=== PATIENT | female | born 1995 | race Caucasian/White ===

== ENCOUNTER 2022-03-16 11:36 | Emergency (ER) | payer BC, OTHER ==
[2022-03-16] MEDS ORDERED: NA CHLORIDE 0.9% 1,000 ML ONE (13:06)
[2022-03-16] MEDS ORDERED: DIPHENHYDRAMINE 50 MG/ML VIAL ONE (13:06)
[2022-03-16] MEDS ORDERED: KETOROLAC 30 MG/ML INJ ONE (13:06)
[2022-03-16 13:21] LABS: Absolute Lymphocytes (CBC) 1.2 K/uL (0.7-4.9); Hematocrit 36.5 % (36.0-45.0); Lymphocytes % 12.6 % (15.3-44.8); MPV 7.9 fL (7.6-11.3); RBC Red Blood Cell Count 4.68 M/uL (3.86-4.86)
[2022-03-16 13:38] LABS: Albumin 3.7 g/dL (3.4-5.0); Bilirubin Total 0.7 mg/dL (0.2-1.0); Potassium 4.2 mmol/L (3.5-5.1); Protein, Total 8.4 g/dL (6.4-8.2)
--- NOTE | 2022-03-16 13:53 | RAD REPORT ---
EXAM DESCRIPTION: CT - CTHCSPWOC - 03/16/2022 1:19 pm CLINICAL HISTORY: Headache COMPARISON: No comparisons TECHNIQUE: Axial 5 mm thick images of the head were obtained. Axial 2 mm thick images of the cervic al spine were obtained with sagittal and coronal reconstruction images generated and reviewed. All CT scans are performed using dose optimization technique as appropriate and may include automated exposure control or mA/KV adjustment according to patient size. FINDINGS: No intracranial hemorrhage, mass, edema or acute intracranial finding. No suspicion for ac rachele infarction. No extra-axial fluid collections. Mastoid air cells and paranasal sinuses are clear. No globe or orbit abnormality seen. Cervical body height and alignment are normal. No disk space narrowing. No fracture or acute bony abn ormality. Anterior spurring superior endplate C6 is mild out more prominent than seen at age. Central canal detail is inherently limited. No paraspinal mass or hematoma. IMPRESSION: Negative CT head examination for acute or significant finding. Negative CT cervical spine examination for acute or significant finding.
[2022-03-16] MEDS ORDERED: HYDROCODONE/APAP 7.5/325 MG TAB ONE (14:54)
[2022-03-16 15:55] LABS: Urine Blood 3+ (Negative); Urine Glucose Negative (Negative); Urine Protein Negative (Negative)
--- NOTE | 2022-03-16 16:38 | RAD REPORT ---
EXAM DESCRIPTION: MRI - Brain W/Wo Cont - 03/16/2022 4:14 pm CLINICAL HISTORY: Left eyelid weakness COMPARISON: No comparisons TECHNIQUE: Sagittal and axial T1-weighted images were obtained. Axial PD/heavily T2-weighted and T2- FLAIR images were obtained along with axial DWI/ADC mapping sequences. Coronal heavily T2 weighted s equence obtained. Axial and coronal post-contrast T1-weighted images were also obtained. A ml Multi william contrast following utilized. FINDINGS: No intracranial hemorrhage, mass or acute infarction. There is no edema or shift of midli ne structures. No extra-axial fluid collections. Gordillo-matter/white matter junction is preserved. Sig nal voids are seen as a normal finding in the major intracranial vessels. No sella or supra sella abn ormality. No globe or orbital content abnormality seen. Adenoid tissue is thickened at 11 mm. No tons illar ectopia. Post-contrast images show normal enhancement. No dural thickening. Mastoid air cells and paranasal sinuses are clear. IMPRESSION: Negative contrast enhanced MRI of the Brain for acute or significant finding Adenoid hypertrophy.
--- NOTE | 2022-03-16 17:21 | EDPHYS ---
Physician Documentation [facility] Name: Vida Hicks Age: 26 yrs Sex: Female : 1995 Arrival Date: 03/16/2022 Time: 11:40 Bed 19 Private MD: ED Physician Garland Alicea DERMATOPATHOLOGIST: 03/16 11:50 LMP 03/16/2022 iw Historical: - Allergies: 11:50 No Known Allergies; iw - Home Meds: 11:50 None [Active]; iw - PMHx: 11:50 Anemia; iw - PSHx: 11:50 None; iw - Immunization history:: Client reports having NOT received the Covid vaccine. - Social history:: Smoking status: Patient/guardian denies using tobacco. Vital Signs: 11:48 BP 126 / 60; Pulse 94; Resp 18; Temp 99.4; Pulse Ox 100% on R/A; Weight 104.33 kg; iw Height 5 ft. 6 in. (167.64 cm); 14:50 BP 115 / 67; Pulse 82; Resp 16; Pulse Ox 100% on R/A; em6 16:15 BP 96 / 61; Pulse 69; Resp 16; Pulse Ox 99% ; em6 17:53 BP 125 / 73; Pulse 76; Resp 18; Pulse Ox 99% ; em6 11:48 Body Mass Index 37.12 (104.33 kg, 167.64 cm) iw Visual Acuity: 15:02 Left Eye Visual acuity 20/20, Normal; Right Eye Visual acuity 20/20, Normal; Both Eyes em6 Visual acuity 20/20; With Lenses; MDM: 17:20 Patient medically screened. [facility] 03/16 12:43 Order name: CBC with Diff; Complete Time: 14:04 [facility] 03/16 12:43 Order name: Comprehensive Metabolic Panel; Complete Time: 14:04 [facility] 03/16 12:43 Order name: Strep; Complete Time: 14:04 [facility] 03/16 13:47 Order name: Throat Culture [facility] 03/16 15:55 Order name: Urine Dipstick-Ancillary; Complete Time: 16:31 [facility] 03/16 15:57 Order name: Urine --Ancillary (enter results); Complete Time: 16:31 [facility] 03/16 12:43 Order name: CT Head C Spine; Complete Time: 14:04 [facility] 03/16 12:43 Order name: Urine Dipstick-Ancillary (obtain specimen); Complete Time: 15:55 kdr 03/16 14:15 Order name: MRI - Brain W/Wo Cont; Complete Time: 17:16 kdr 03/16 12:43 Order name: Urine Test (obtain specimen); Complete Time: 15:55 kdr 03/16 14:15 Order name: Visual Acuity; Complete Time: 14:52 kdr Administered Medications: 13:14 Drug: Benadryl (diphenhydrAMINE) 25 mg Route: IVP; Site: left antecubital; em6 14:10 Follow up: Response: No adverse reaction jd3 13:15 Drug: Ketorolac 15 mg Route: IVP; Site: left antecubital; em6 14:15 Follow up: Response: No adverse reaction jd3 13:23 Drug: NS 0.9% 1000 ml Route: IV; Rate: 1 bolus; Site: left antecubital; em6 14:48 Follow up: Response: No adverse reaction; IV Status: Completed infusion; IV Intake: em6 1000ml 14:48 Drug: [place] (HYDROcodone-acetaminophen) (7.5 mg-325 mg) 1 tabs Route: PO; em6 15:28 Follow up: Response: No adverse reaction; RASS: Alert and Calm (0) jd3 17:40 Drug: SOLU-Medrol (methylPrednisoLONE) 125 mg Route: IVP; Site: left antecubital; em6 17:55 Follow up: Response: No adverse reaction em6 Disposition Summary: 03/16/22 17:20 Discharge Ordered Location: Home kdr Problem: new kdr Symptoms: have improved kdr Condition: Stable kdr Diagnosis - Headache kdr - Acute pharyngitis, unspecified kdr - Left eyelid lag kdr Followup: kdr - With: Private Physician - When: 2 - 3 days - Reason: If symptoms return, Further diagnostic work-up, Recheck today's complaints, Continuance of care, Re-evaluation by your physician Discharge Instructions: - Discharge Summary Sheet kdr - General Headache Without Cause kdr - Pharyngitis kdr Forms: - Medication Reconciliation Form kdr - Thank You Letter kdr Prescriptions: - Medrol (Eduar) 4 mg Oral Tablets, Dose Pack - take 1 tablet by ORAL route as directed - follow package instructions; 1 kdr packet; Refills: 0, Product Selection Permitted - Ibuprofen 800 mg Oral Tablet - take 1 tablet by ORAL route every 12 hours As needed take with food; 20 tablet; kdr Refills: 0, Product Selection Permitted Signatures: Dispatcher Garland Smith MD MD kdr Suzanne Alonso, RN RN iw Haydee Avendaño RN RN em6 Alexander Hall RN jd3
--- NOTE | 2022-03-16 17:21 | ER ---
Nurse's Notes [facility] Name: Vida Hicks Age: 26 yrs Sex: Female : 1995 Arrival Date: 03/16/2022 Time: 11:40 Bed 19 Private MD: Diagnosis: Headache;Acute pharyngitis, unspecified;Left eyelid lag Presentation: 03/16 11:48 Chief complaint: Patient states: has been having swelling to right tonsil, gets dizzy iw and has shooting pains in head , fever X 3 days , was seen at urgent care and flu/covid were negative , fever up to 103. Coronavirus screen: Client presents with at least one sign or symptom that may indicate coronavirus-19. Ebola Screen: Patient negative for fever greater than or equal to 101.5 degrees Fahrenheit, and additional compatible Ebola Virus Disease symptoms Patient denies exposure to infectious person. Patient denies travel to an Ebola-affected area in the 21 days before illness onset. No symptoms or risks identified at this time. Initial Sepsis Screen: Does the patient meet any 2 criteria? No. Patient's initial sepsis screen is negative. Does the patient have a suspected source of infection? No. Patient's initial sepsis screen is negative. Risk Assessment: Do you want to hurt yourself or someone else? Patient reports no desire to harm self or others. Onset of symptoms was March 13, 2022. 11:48 Method Of Arrival: Ambulatory iw 11:48 Acuity: ZAC 3 iw [employer] ATTENDANT: 11:50 LMP 03/16/2022 iw Historical: - Allergies: 11:50 No Known Allergies; iw - Home Meds: 11:50 None [Active]; iw - PMHx: 11:50 Anemia; iw - PSHx: 11:50 None; iw - Immunization history:: Client reports having NOT received the Covid vaccine. - Social history:: Smoking status: Patient/guardian denies using tobacco. Screenin:13 Abuse screen: Denies threats or abuse. Nutritional screening: No deficits noted. em6 Tuberculosis screening: No symptoms or risk factors identified. Fall Risk. Assessment: 12:11 General: Appears in no apparent distress. comfortable, Behavior is calm, cooperative, em6 appropriate for age. Pain: Complains of pain in head Pain radiates to back of neck Pain currently is 2 out of 10 on a pain scale. Quality of pain is described as pressure, Pain began 2-3 days ago. Is intermittent. Neuro: Castaneda Agitation-Sedation Scale (RASS): 0 - Alert and Calm Level of Consciousness is awake, alert, obeys commands, Oriented to person, place, time, situation, Reports headache frontal area, occipital area. Cardiovascular: Heart tones present Patient's skin is warm and dry. Respiratory: Airway is patent Respiratory effort is even, unlabored, Respiratory pattern is regular, symmetrical, Breath sounds are clear bilaterally. GI: No signs and/or symptoms were reported involving the gastrointestinal system. : No signs and/or symptoms were reported regarding the genitourinary system. EENT: No signs and/or symptoms were reported regarding the EENT system. Derm: No signs and/or symptoms reported regarding the dermatologic system. Musculoskeletal: Circulation, motion, and sensation intact. Range of motion: intact in all extremities. 13:10 Reassessment: Patient appears in no apparent distress at this time. No changes from em6 previously documented assessment. Patient and/or family updated on plan of care and expected duration. Pain level reassessed. Patient is alert, oriented x 3, equal unlabored respirations, skin warm/dry/pink. 14:10 Reassessment: Patient appears in no apparent distress at this time. Patient and/or em6 family updated on plan of care and expected duration. Pain level reassessed. Patient is alert, oriented x 3, equal unlabored respirations, skin warm/dry/pink. 15:29 Reassessment: Patient appears in no apparent distress at this time. No changes from jd3 previously documented assessment. Patient and/or family updated on plan of care and expected duration. Pain level reassessed. Patient is alert, oriented x 3, equal unlabored respirations, skin warm/dry/pink. 16:30 Reassessment: Patient and/or family updated on plan of care and expected duration. Pain em6 level reassessed. Patient is alert, oriented x 3, equal unlabored respirations, skin warm/dry/pink. Patient states feeling better. 17:30 Reassessment: Patient appears in no apparent distress at this time. Patient and/or em6 family updated on plan of care and expected duration. Pain level reassessed. Patient is alert, oriented x 3, equal unlabored respirations, skin warm/dry/pink. Vital Signs: 11:48 BP 126 / 60; Pulse 94; Resp 18; Temp 99.4; Pulse Ox 100% on R/A; Weight 104.33 kg; iw Height 5 ft. 6 in. (167.64 cm); 14:50 BP 115 / 67; Pulse 82; Resp 16; Pulse Ox 100% on R/A; em6 16:15 BP 96 / 61; Pulse 69; Resp 16; Pulse Ox 99% ; em6 17:53 BP 125 / 73; Pulse 76; Resp 18; Pulse Ox 99% ; em6 11:48 Body Mass Index 37.12 (104.33 kg, 167.64 cm) iw Visual Acuity: 15:02 Left Eye Visual acuity 20/20, Normal; Right Eye Visual acuity 20/20, Normal; Both Eyes em6 Visual acuity 20/20; With Lenses; ED Course: 11:40 Patient arrived in ED. rg4 11:50 Triage completed. iw 11:50 Arm band placed on. iw 11:52 Garland Alicea MD is Attending Physician. kdr 12:13 Patient has correct armband on for positive identification. Bed in low position. Call em6 light in reach. Warm blanket given. 13:14 Inserted saline lock: 20 gauge in left antecubital area, using aseptic technique. Blood em6 collected. 13:15 Strep Sent. em6 13:21 CT Head C Spine In Process Unspecified. EDMS 15:57 MRI - Brain W/Wo Cont In Process Unspecified. EDMS 17:55 No provider procedures requiring assistance completed. IV discontinued, intact, em6 bleeding controlled, No redness/swelling at site. Pressure dressing applied. Administered Medications: 13:14 Drug: Benadryl (diphenhydrAMINE) 25 mg Route: IVP; Site: left antecubital; em6 14:10 Follow up: Response: No adverse reaction jd3 13:15 Drug: Ketorolac 15 mg Route: IVP; Site: left antecubital; em6 14:15 Follow up: Response: No adverse reaction jd3 13:23 Drug: NS 0.9% 1000 ml Route: IV; Rate: 1 bolus; Site: left antecubital; em6 14:48 Follow up: Response: No adverse reaction; IV Status: Completed infusion; IV Intake: em6 1000ml 14:48 Drug: [place] (HYDROcodone-acetaminophen) (7.5 mg-325 mg) 1 tabs Route: PO; em6 15:28 Follow up: Response: No adverse reaction; RASS: Alert and Calm (0) jd3 17:40 Drug: SOLU-Medrol (methylPrednisoLONE) 125 mg Route: IVP; Site: left antecubital; em6 17:55 Follow up: Response: No adverse reaction em6 Medication: 12:13 VIS not applicable for this client. em6 Intake: 14:48 IV: 1000ml; Total: 1000ml. em6 Outcome: 17:20 Discharge ordered by . kdr 17:56 Discharged to home ambulatory, with family. em6 17:56 Condition: stable 17:56 Discharge instructions given to patient, family, Instructed on discharge instructions, follow up and referral plans. medication usage, Demonstrated understanding of instructions, follow-up care, medications, Prescriptions given X 2. 17:57 Patient left the ED. em6 Signatures: Dispatcher [employer] EDMS Garland Alicea MD MD kdr Williams, Irene, RN RN iw Garcia, Rubi rg4 Alexander Hall RN RN jHaydee Spears RN RN em6
[2022-03-16] MEDS ORDERED: METHYLPREDNISOLONE 125 MG INJ ONE (17:53)
[2022-03-16 18:59] VITALS: TEMP 99.4
[2022-03-16 19:04] VITALS: O2SAT 99
[2022-03-16 19:13] VITALS: BP 125/73
== END 2022-03-16 17:57 | disposition home or self-care (01) ==
LOC: ER 11:36
DX: R51.9 Headache, unspecified (principal); J02.9 Acute pharyngitis, unspecified; H02.536 Eyelid retraction left eye, unspecified eyelid
CPT/HCPCS: 96361; 87070; 85025; 36415; 81025; 87081; 81003; 80053; 70450; 72125; 70553; 96375; 96374; 99284; A9577; J1200; J7030; J2930

== ENCOUNTER 2025-05-13 07:50 | Emergency (ER) | payer OTHER ==
[2025-05-13] MEDS ORDERED: FENTANYL CITR 100 MCG/2 ML ONE (08:25)
[2025-05-13] MEDS ORDERED: ONDANSETRON 4 MG/2 ML VIAL ONE (08:25)
[2025-05-13] MEDS ORDERED: NA CHLORIDE 0.9% 1,000 ML ONE (08:26)
[2025-05-13] MEDS ORDERED: FAMOTIDINE 20 MG/2 ML VIAL IV ONE (08:26)
[2025-05-13] MEDS ORDERED: KETOROLAC 30 MG/ML INJ ONE (08:27)
[2025-05-13 08:42] LABS: Absolute Lymphocytes (CBC) 1.9 K/uL (0.7-4.9); Hematocrit 36.0 % (36.0-45.0); Hemoglobin 11.7 g/dL (12.0-15.0); MCH 25.7 pg (27.0-35.0); MCHC 32.4 g/dL (32.0-36.0); MCV 79.3 fL (80-100); MPV 8.4 fL (7.6-11.3); Nucleated RBC Absolute Count 0.0 (0-0); Nucleated Red Blood Cells % 0.1 % (0-0); RBC Red Blood Cell Count 4.54 M/uL (3.86-4.86); White Blood Count 7.90 thou/uL (4.3-10.9)
[2025-05-13 08:56] LABS: Urine Microscopic Reflex YN NO UMIC
[2025-05-13 09:12] LABS: ALT/SGPT 28.0 U/L (13-56); AST/SGOT 16.0 U/L (15-37); Albumin 3.5 g/dL (3.4-5.0); Albumin/Globulin Ratio 0.9 (1.1-1.8); Alkaline Phosphatase 50.0 U/L (45-117); Anion Gap 10.0 mEq/L (5.0-15.0); BUN Blood Urea Nitrogen 13.0 mg/dL (7-18); Globulin 4.0 g/dL (2.3-3.5); Glucose Level 93.0 mg/dL (74-106); Lipase 31.0 U/L (13-75); Potassium 4.0 mEq/L (3.5-5.1)
--- NOTE | 2025-05-13 09:22 | RAD REPORT ---
EXAMINATION: CT ABDOMEN AND PELVIS WITH CONTRAST CLINICAL INDICATION: ABD PAIN TECHNIQUE: CT abdomen and pelvis was performed, after the administration of IV contrast, as per [facility] protocol. Axial, sagittal and coronal reconstructions were obtained. One or more of the following dose reduction techniques were used: Automated exposure control, adjustment of the mA and k V according to patient size, and iterative reconstruction. Unless otherwise specified, incidental findings do not require dedicated imaging follow-up. COMPARISON: No prior exam. FINDINGS: LOWER CHEST: The visualized lung bases are clear. LIVER: Normal in size and contour. No focal lesion. Grossly unremarkable gallbladder. SPLEEN: Normal size. No focal lesion. PANCREAS: No mass, ductal dilation, or mike-pancreatic fluid. ADRENALS: Normal; no mass. KIDNEYS: Normal size and contour. No hydronephrosis. GASTROINTESTINAL TRACT: No evidence of free air, significant intra-abdominal free fluid, bowel obstru ction or abscess. APPENDIX: Normal appendix. LYMPH NODES: No lymphadenopathy. MUSCULOSKELETAL: Moderate lower lumbar spondylosis. ADDITIONAL FINDINGS: None. IMPRESSION: No acute abnormalities seen in the abdomen or pelvis.
--- NOTE | 2025-05-13 10:00 | EDPHYS ---
Physician Documentation [facility] Name: Vida Hicks Age: 29 yrs Sex: Female : 1995 Arrival Date: 05/13/2025 Time: 07:50 Bed 7 Private MD: ED Physician López Coburn HPI: 05/13 08:37 This 29 yrs old Female presents to ER via Ambulatory with complaints of Fall adonay Injury, Abdominal Pain, Nausea. 08:37 Details of fall: The patient fell from an upright position, while walking. Onset: The adonay symptoms/episode began/occurred just prior to arrival, this morning. Associated injuries: The patient sustained injury to the abdomen, specifically the right lower quadrant and left lower quadrant, contusion. Severity of symptoms: At their worst the symptoms were mild, in the emergency department the symptoms are unchanged. The patient has not experienced similar symptoms in the past. Historical: - Allergies: 08:07 Amoxicillin; bp 08:07 PENICILLINS; bp - PMHx: 08:07 Anemia; Anxiety; Bipolar disorder; PTSD; Schizophrenia; bp - Immunization history:: Adult Immunizations up to date. - Infectious Disease History:: Denies. - Social history:: Smoking status: Patient denies any tobacco usage or history of. - Family history:: not pertinent. ROS: 08:37 Constitutional: Negative for fever, chills, and weight loss, Eyes: Negative for injury, adonay pain, redness, and discharge, ENT: Negative for injury, pain, and discharge, Neck: Negative for injury, pain, and swelling, Cardiovascular: Negative for chest pain, palpitations, and edema, Respiratory: Negative for shortness of breath, cough, wheezing, and pleuritic chest pain, Back: Negative for injury and pain, : Negative for injury, bleeding, discharge, and swelling, MS/Extremity: Negative for injury and deformity, Skin: Negative for injury, rash, and discoloration, Neuro: Negative for headache, weakness, numbness, tingling, and seizure, Psych: Negative for depression, anxiety, suicide ideation, homicidal ideation, and hallucinations, Allergy/Immunology: Negative for hives, rash, and allergies, Endocrine: Negative for neck swelling, polydipsia, polyuria, polyphagia, and marked weight changes, Hematologic/Lymphatic: Negative for swollen nodes, abnormal bleeding, and unusual bruising, 08:37 Abdomen/GI: Positive for abdominal pain, of the right lower quadrant and left lower quadrant, Exam: 08:37 Constitutional: This is a well developed, well nourished patient who is awake, alert, adonay and in no acute distress. Head/Face: Normocephalic, atraumatic. Eyes: Pupils equal round and reactive to light, extra-ocular motions intact. Lids and lashes normal. Conjunctiva and sclera are non-icteric and not injected. Cornea within normal limits. Periorbital areas with no swelling, redness, or edema. ENT: Nares patent. No nasal discharge, no septal abnormalities noted. Tympanic membranes are normal and external auditory canals are clear. Oropharynx with no redness, swelling, or masses, exudates, or evidence of obstruction, uvula midline. Mucous membranes moist. Neck: Trachea midline, no thyromegaly or masses palpated, and no cervical lymphadenopathy. Supple, full range of motion without nuchal rigidity, or vertebral point tenderness. No Meningismus. Chest/axilla: Normal chest wall appearance and motion. Nontender with no deformity. No lesions are appreciated. Cardiovascular: Regular rate and rhythm with a normal S1 and S2. No gallops, murmurs, or rubs. Normal PMI, no JVD. No pulse deficits. Respiratory: Lungs have equal breath sounds bilaterally, clear to auscultation and percussion. No rales, rhonchi or wheezes noted. No increased work of breathing, no retractions or nasal flaring. Back: No spinal tenderness. No costovertebral tenderness. Full range of motion. Female : Normal external genitalia. Skin: Warm, dry with normal turgor. Normal color with no rashes, no lesions, and no evidence of cellulitis. MS/ Extremity: Pulses equal, no cyanosis. Neurovascular intact. Full, normal range of motion., bilateral aka Neuro: Awake and alert, GCS 15, oriented to person, place, time, and situation. Cranial nerves II-XII grossly intact. Motor strength 5/5 in all extremities. Sensory grossly intact. Cerebellar exam normal. Normal gait. Psych: Awake, alert, with orientation to person, place and time. Behavior, mood, and affect are within normal limits. 08:37 Abdomen/GI: Inspection: abdomen appears normal, Bowel sounds: normal, Palpation: mild abdominal tenderness, in the right lower quadrant and left lower quadrant, moderate abdominal tenderness, in the right lower quadrant and left lower quadrant, Liver: no appreciated palpable abnormalities, Hernia: not appreciated, Vital Signs: 08:06 BP 130 / 59; Pulse 69; Resp 16; Temp 98.1; Pulse Ox 100% ; bp MDM: 07:55 Medical Screening Exam initiated adonay 08:50 Differential diagnosis: contusion. Data reviewed: vital signs, nurses notes, lab test adonay result(s), radiologic studies, CT scan. Consideration of Admission/Observation Escalation of care including admission/observation considered. I considered the following discharge prescriptions or medication management in the emergency department Medications were administered in the Emergency Department. See MAR. Independent interpretation of the following test(s) in the Emergency Department CT Scan: My interpretation is ct abd / pel. Test considered but Not performed: Ultrasound no FAST EXAM. Care significantly affected by the following chronic conditions: ANEMAIA, EMPLEON, BIPOLAR, PTSD, ANXIETY. 05/13 08:20 Order name: CBC with Diff; Complete Time: 09:59 [facility] 05/13 08:20 Order name: CMP; Complete Time: 09:59 [facility] 05/13 08:20 Order name: Lipase; Complete Time: 09:59 [facility] 05/13 08:20 Order name: Test, Urine; Complete Time: 09:59 [facility] 05/13 08:20 Order name: UA Rfx Earle Cult if indicated; Complete Time: 09:59 [facility] 05/13 08:20 Order name: CT Abd/Pelvis - IV Contrast Only; Complete Time: 09:59 [facility] 05/13 08:20 Order name: IV Saline Lock; Complete Time: 08:28 [facility] 05/13 08:20 Order name: Labs collected and sent; Complete Time: 08:28 [facility] Administered Medications: :23 CANCELLED (Duplicate Order): morphineor iv 4 mg IVP once over 4 mins adonay 08:36 Drug: Famotidine IVP 20 mg IVP once; dilute with 10 mL 0.9% NaCl; give over 2 minutes kb4 Route: IVP; Site: right antecubital; 09:02 Follow up: Response: No adverse reaction kb4 08:36 Drug: Ondansetron IVP 4 mg IVP once; over 2 minutes Route: IVP; Site: right antecubital;kb4 09:02 Follow up: Response: No adverse reaction kb4 08:36 Drug: NS 0.9% IV 1000 ml IV at 1 bolus Per protocol; to be given as a bolus over 60 kb4 minutes Route: IV; Rate: 1 bolus; Site: right antecubital; 08:43 Drug: fentaNYL (PF) IVP 50 mcg IVP once Route: IVP; Site: right antecubital; kb4 09:02 Follow up: Response: No adverse reaction kb4 09:39 Follow up: Response: No adverse reaction kb4 09:02 Drug: TORadol - Ketorolac IVP 15 mg IVP once Route: IVP; Site: right antecubital; kb4 Disposition Summary: 05/13/25 09:59 Discharge Ordered Notes: Location: Home adonay Problem: new adonay Symptoms: have improved adonay Condition: Stable adonay Diagnosis - Fall on same level, unspecified adonay - Abdominal tenderness adonay Followup: adonay - With: Private Physician - When: 2 - 3 days - Reason: Recheck today's complaints, Continuance of care, Re-evaluation by your physician Discharge Instructions: - Discharge Summary Sheet adonay - Abdominal Pain, Adult adonay - Contusion adonay - Fall Prevention in the Home, Adult adonay - Nausea, Adult adonay - Contusion, [id number] adonay - Abdominal Pain, Adult, [id number] adonay - Fall Prevention in the Home, Adult, [id number] adonay Forms: - Medication Reconciliation Form adonay - Antibiotic Education adonay - Prescription Opioid Use adonay - Patient Portal Instructions adonay - Leadership Thank You Letter adonay - Work release form bc6 Prescriptions: - Ibuprofen 600 mg Oral Tablet - take 1 tablet ORAL route every 6 hours As needed take with food; 30 tablet; [facility] Refills: 0, Product Selection Permitted - Zofran 4 mg Oral Tablet - take 1 tablet ORAL route every 12 hours As needed; 20 tablet; Refills: 0, [facility] Product Selection Permitted - dicyclomine 20 mg Oral tablet - take 1 tablet ORAL route 4 times per day; 28 tablet; Refills: 0, Product [facility] Selection Permitted Signatures: Dispatcher [employer] López Laboy MD MD cha Peltier, Brian, RN RN bp Johana Andrea RN RN kb4 Corrections: (The following items were deleted from the chart) 08:20 08:20 CBC+H.LAB.BRZ ordered. EDHI EDMS 08:20 08:20 COMPREHENSIVE METABOLIC PANEL+C.LAB.BRZ ordered. EDMS EDMS 08:20 08:20 LIPASE+C.LAB.BRZ ordered. EDMS EDMS 08:20 08:20 Test, Urine+UC.LAB.BRZ ordered. EDMS EDMS 08:20 08:20 UA Rfx Earle Cult if indicated+U.LAB.BRZ ordered. EDMS EDMS 08:23 08:20 morphine IVP or IV 4 mg IVP once over 4 mins ordered. adonay urias
--- NOTE | 2025-05-13 10:00 | ER ---
Nurse's Notes [facility] Name: Vida Hicks Age: 29 yrs Sex: Female : 1995 Arrival Date: 05/13/2025 Time: 07:50 Bed 7 Private MD: Diagnosis: Fall on same level, unspecified;Abdominal tenderness Presentation: 05/13 08:06 Chief complaint: Patient states: MECHANICAL FALL AT 2200, ABD STRIKE TO MATTRESS. NOW bp WITH NAUSEA. NO HEAD STRIKE, NO LOC. Coronavirus screen: At this time, the client does not indicate any symptoms associated with coronavirus-19. Ebola Screen: No symptoms or risks identified at this time. Initial Sepsis Screen: Does the patient meet any 2 criteria? No. Patient's initial sepsis screen is negative. Does the patient have a suspected source of infection? No. Patient's initial sepsis screen is negative. Risk Assessment: Do you want to hurt yourself or someone else? Patient reports no desire to harm self or others. Onset of symptoms was May 12, 2025 at 22:00. 08:06 Method Of Arrival: Ambulatory bp 08:06 Acuity: ZAC 3 bp Triage Assessment: 08:07 General: Appears in no apparent distress. Behavior is cooperative, appropriate for age, bp anxious. Pain: Complains of pain in abdomen. EENT: No deficits noted. Neuro: No deficits noted. Cardiovascular: No deficits noted. Respiratory: No deficits noted. GI: Reports upper abdominal pain. : No signs and/or symptoms were reported regarding the genitourinary system. Derm: No deficits noted. Musculoskeletal: No deficits noted. Historical: - Allergies: 08:07 Amoxicillin; bp 08:07 PENICILLINS; bp - PMHx: 08:07 Anemia; Anxiety; Bipolar disorder; PTSD; Schizophrenia; bp - Immunization history:: Adult Immunizations up to date. - Infectious Disease History:: Denies. - Social history:: Smoking status: Patient denies any tobacco usage or history of. - Family history:: not pertinent. Screenin:09 [facility] ED Fall Risk Assessment (Adult) History of falling in the last 3 months, bp including since admission Yes- single mechanical fall (1 pt) Confusion or Disorientation No (0 pts) Intoxicated or Sedated No (0 pts) Impaired Gait No (0 pts) Mobility Assist Device Used No (0 pt) Altered Elimination No (0 pt) Score/Fall Risk Level 0 - 2 = Low Risk Oriented to surroundings. Abuse screen: Denies threats or abuse. Denies injuries from another. Nutritional screening: No deficits noted. Tuberculosis screening: No symptoms or risk factors identified. Assessment: 09:15 General: Appears in no apparent distress. uncomfortable, Behavior is calm, cooperative. kb4 Pain: Complains of pain in abdomen and left lower quadrant and right lower quadrant. Neuro: Level of Consciousness is awake, alert, obeys commands, Oriented to person, place, time, situation. Cardiovascular: Patient's skin is warm and dry. Respiratory: Airway is patent Respiratory effort is even, unlabored, Respiratory pattern is regular, symmetrical. Derm: Skin is healthy with good turgor. 09:15 Pain: Pain currently is 6 out of 10 on a pain scale. kb4 Vital Signs: 08:06 BP 130 / 59; Pulse 69; Resp 16; Temp 98.1; Pulse Ox 100% ; bp ED Course: 07:53 Patient arrived in ED. cj3 07:55 López Coburn MD is Attending Physician. adonay 08:07 Triage completed. bp 08:07 Arm band placed on. bp 08:08 Johana Andrea, RN is Primary Nurse. kb4 08:09 Patient has correct armband on for positive identification. bp 08:30 Initial lab(s) drawn, by me, sent to lab. Inserted saline lock: 20 gauge in right hb antecubital area, using aseptic technique. Blood collected. Flushed with 10 mL NS. 08:37 No provider procedures requiring assistance completed. kb4 09:08 CT Abd/Pelvis - IV Contrast Only In Process Unspecified. EDMS 10:15 IV discontinued, intact, bleeding controlled, No redness/swelling at site. Pressure aa5 dressing applied. Administered Medications: 08:23 CANCELLED (Duplicate Order): morphineor iv 4 mg IVP once over 4 mins [facility] 08:36 Drug: Famotidine IVP 20 mg IVP once; dilute with 10 mL 0.9% NaCl; give over 2 minutes kb4 Route: IVP; Site: right antecubital; 09:02 Follow up: Response: No adverse reaction [facility] 08:36 Drug: Ondansetron IVP 4 mg IVP once; over 2 minutes Route: IVP; Site: right antecubital;kb4 09:02 Follow up: Response: No adverse reaction kb4 08:36 Drug: NS 0.9% IV 1000 ml IV at 1 bolus Per protocol; to be given as a bolus over 60 kb4 minutes Route: IV; Rate: 1 bolus; Site: right antecubital; 08:43 Drug: fentaNYL (PF) IVP 50 mcg IVP once Route: IVP; Site: right antecubital; kb4 09:02 Follow up: Response: No adverse reaction kb4 09:39 Follow up: Response: No adverse reaction kb4 09:02 Drug: TORadol - Ketorolac IVP 15 mg IVP once Route: IVP; Site: right antecubital; kb4 Medication: 10:15 VIS not applicable for this client. aa5 Outcome: 09:59 Discharge ordered by . adonay 10:15 Discharged to home ambulatory, aa5 10:15 Condition: stable 10:15 Discharge instructions given to patient, Instructed on discharge instructions, follow up and referral plans. medication usage, Demonstrated understanding of instructions, follow-up care, medications, Prescriptions given X 3, 10:19 Patient left the ED. aa5 Signatures: Dispatcher [employer] EDMS López Coburn MD MD cha Calderon, Audri RN RN aa5 Ellyn Alexander RN Aaron Sutherland RN RN bp Bowen, Kayla, RN RN kb4 Cherri Arteaga cj3 Corrections: (The following items were deleted from the chart) 10:20 09:38 Reassessment: kb4 aa5
[2025-05-13 10:28] VITALS: BP 130/59; TEMP 98.1; O2SAT 100
== END 2025-05-13 10:19 | disposition home or self-care (01) ==
LOC: ER 07:50
DX: R10.814 Left lower quadrant abdominal tenderness (principal); R10.813 Right lower quadrant abdominal tenderness; W18.30XA Fall on same level, unspecified, initial encounter
CPT/HCPCS: 85025; 36415; 81025; 81003; 83690; 80053; 74177; 96375; 96374; 99284; Q9967; J1885; J3010; J2405; J7030